=== PATIENT | male | born 1970 | race African-American/Black ===

== ENCOUNTER 2019-04-28 14:43 | Emergency (ER) | payer OTHER ==
[2019-04-28 14:57] VITALS: BP 153/96; PULSE 94; TEMP 98.4; BMI 43.0
--- NOTE | 2019-04-28 14:58 | PDOC ---
Rapid Medical Evaluation Chief Complaint: Respiratory Time Seen by Provider: 04/28/19 14:55 Medical Evaluation: 04/28/19 14:56 I have performed a brief in-person evaluation of this patient. The patient presents with a chief complaint of: flu-like symptoms x 2 weeks. report cough, nasal congestion, fever, body aches. pt report has been feeling hot but never checked temp. report taking Teraflu for symptoms Pertinent physical exam findings: afebrile I have ordered the following: nothing The patient will proceed to the ED for further evaluation. Discharge Disposition - Diagnosis URI (upper respiratory infection) Qualifiers: URI type: unspecified viral URI Qualified Code(s): J06.9 - Acute upper respiratory infection, unspecified - Discharge Dispostion Condition at time of disposition: Stable - Referrals - Patient Instructions - Post Discharge Activity
[2019-04-28] MEDS ORDERED: ALBUTEROL SO4 2.5/IPRATROPIUM 0.5 INH SOL 3 ML VIAL.NEB. NEB ONE ×2 (15:44)
--- NOTE | 2019-04-28 15:47 | PDOC ---
History of Present Illness - General Chief Complaint: Respiratory Stated Complaint: FLU SYMPTOMS Time Seen by Provider: 04/28/19 14:55 - History of Present Illness Initial Comments: 04/28/19 15:44 CHIEF COMPLAINT: cough HISTORY OF PRESENT ILLNESS: 48 yo M with hx of HTN presents to [facility] with cough x 2 weeks. Patient reports subjective fever but has not taken his temp at home. Patient denies any vomiting or diarrhea. No recent travel or sick contacts. PAST MEDICAL HISTORY: Denies past medical history FAMILY HISTORY: Denies SOCIAL HISTORY: Denies tobacco, alcohol, illicit drug use. SURGICAL HISTORY: Denies ALLERGIES: No known drug allergies REVIEW OF SYSTEMS General/Constitutional: Subjective fever and chills. Denies weakness, weight change. HEENT: Denies change in vision. Denies ear pain or discharge. Denies sore throat. Cardiovascular: Denies chest pain or shortness of breath. Respiratory: Productive cough x 2 weeks. Denies wheezing, or hemoptysis. Gastrointestinal: Denies nausea, vomiting, diarrhea or constipation. Denies rectal bleeding. Genitourinary: Denies dysuria, frequency, or change in urination. Musculoskeletal: Denies joint or muscle swelling or pain. Denies neck or back pain. Skin and breasts: Denies rash or easy bruising. Neurologic: Denies headache, vertigo, loss of consciousness, or loss of sensation. Psychiatric: Denies depression or anxiety. PHYSICAL EXAM General Appearance: Well-appearing, appropriately dressed. No apparent distress. HEENT: EOMI, PERRLA, normal ENT inspection, normal voice, TMs normal, pharynx normal. No conjunctival pallor. No photophobia, scleral icterus. Neck: Supple. Trachea midline. No tenderness, rigidity, carotid bruit, stridor , lymphadenopathy, or thyromegaly. Respiratory/Chest: Bronchspasm with deep inspiration. Lungs CTAB. No shortness of breath, chest tenderness, respiratory distress, accessory muscle use. No crackles, rales, rhonchi, stridor, wheezing, dullness Cardiovascular: RRR. S1, S2. No JVD, murmur, bradycardia, tachycardia. Vascular Pulses: Dorsalis-Pedis (R): 2+, Dorsalis-Pedis (L): 2+ Gastrointestinal/Abdominal: Normal bowel sounds. Abdomen soft, non-distended. No tenderness or rebound tenderness. No organomegaly, pulsatile mass, guarding , hernia, hepatomegaly, splenomegaly. Lymphatic: No adenopathy, tenderness. Musculoskeletal/Extremities: Normal inspection. FROM of all extremities, normal capillary refill. Pelvis Stable. No CVA tenderness. No tenderness to extremities, pedal edema, swelling, erythema or deformity. Integumentary: Appropriate color, dry, warm. No cyanosis, erythema, jaundice or rash Neurologic: physical therapy nurse II-XII intact. Fully oriented, alert. Appropriate mood/affect. Motor strength 5/5. No appreciable EOM palsy, facial droop or sensory deficit. Past History - Past Medical History Allergies/Adverse Reactions: Allergies Allergy/AdvReac Type Severity Reaction Status Date / Time No Known Allergies Allergy Verified 04/28/19 14:57 Home Medications: Ambulatory Orders Albuterol Sulfate Inhaler - [Ventolin HFA Inhaler -] 1 - 2 inh PO QID PRN #1 inhaler 04/28/19 Azithromycin [Zithromax 250mg Tablets -] 250 mg PO UTDICT #6 tab 04/28/19 Benzonatate [Tessalon Pearls -] 100 mg PO TID #21 capsule 04/28/19 Phenylephrine HCl [Nasal Decongestant PE] 10 mg PO Q6H #20 tablet 04/28/19 predniSONE [Deltasone -] 20 mg PO DAILY #4 tablet 04/28/19 COPD: No HTN: Yes - Psycho Social/Smoking Cessation Hx Smoking History: Never smoked *Physical Exam - Vital Signs Last Vital Signs Temp Pulse Resp BP Pulse Ox 98.4 F 94 H 18 153/96 99 04/28/19 14:54 04/28/19 14:54 04/28/19 14:54 04/28/19 14:54 04/28/19 14:54 Medical Decision Making - Medical Decision Making 04/28/19 15:47 48 yo M with hx of HTN presents to [facility] with cough x 2 weeks. -duoneb -tessalon perles -phenylephrine -prednisone Advised patient to take medication as prescribed and follow up with PCP within 1 week. Advised patient of signs and symptoms for return to ED. Patient verbalized understanding and agrees to plan. 04/28/19 15:47 Discharge - Discharge Information Problems reviewed: Yes Clinical Impression/Diagnosis: URI (upper respiratory infection) Qualifiers: URI type: unspecified viral URI Qualified Code(s): J06.9 - Acute upper respiratory infection, unspecified Condition: Stable Disposition: HOME - Admission No - Additional Discharge Information Prescriptions: Albuterol Sulfate Inhaler - [Ventolin HFA Inhaler -] 1 - 2 inh PO QID PRN #1 inhaler PRN Reason: bronchospasm Azithromycin [Zithromax 250mg Tablets -] 250 mg PO UTDICT #6 tab Benzonatate [Tessalon Pearls -] 100 mg PO TID #21 capsule Phenylephrine HCl [Nasal Decongestant PE] 10 mg PO Q6H #20 tablet predniSONE [Deltasone -] 20 mg PO DAILY #4 tablet - Follow up/Referral Referrals: Oneyda Durbin MD [Primary Care Provider] - - Patient Discharge Instructions Patient Printed Discharge Instructions: DI for Viral Upper Respiratory Infection -- Adult - Post Discharge Activity Work/Back to School Note: Back to Work
== END 2019-04-28 16:02 | disposition home or self-care (01) ==
LOC: JERFT 14:43
PROC: 3E0F7GC Introduction of Other Therapeutic Substance into Respiratory Tract, Via Natural or Artificial Opening (ICD-10-PCS; principal; 2019-04-28)
DX: J06.9 Acute upper respiratory infection, unspecified (principal); B97.89 Other viral agents as the cause of diseases classified elsewhere; I10 Essential (primary) hypertension
CPT/HCPCS: 99281-25